=== PATIENT | male | born 1955 | race Caucasian/White ===

== ENCOUNTER → 2018-08-27 | Outpatient (CLI) | payer OTHER | LOC: HYPER 07:03 | DX: E11.621 Type 2 diabetes mellitus with foot ulcer (principal); L97.512 Non-pressure chronic ulcer of other part of right foot with fat layer exposed; E11.40 Type 2 diabetes mellitus with diabetic neuropathy, unspecified; I25.2 Old myocardial infarction; I10 Essential (primary) hypertension; E78.5 Hyperlipidemia, unspecified; E66.9 Obesity, unspecified; G89.29 Other chronic pain; M54.9 Dorsalgia, unspecified; M19.90 Unspecified osteoarthritis, unspecified site; K21.9 Gastro-esophageal reflux disease without esophagitis; E03.9 Hypothyroidism, unspecified; F41.9 Anxiety disorder, unspecified; F32.9 Major depressive disorder, single episode, unspecified; Z87.891 Personal history of nicotine dependence; Z68.35 Body mass index [BMI] 35.0-35.9, adult; Z98.61 Coronary angioplasty status; Z22.322 Carrier or suspected carrier of Methicillin resistant Staphylococcus aureus; Z79.82 Long term (current) use of aspirin; Z79.4 Long term (current) use of insulin; Z79.84 Long term (current) use of oral hypoglycemic drugs; Z79.01 Long term (current) use of anticoagulants ==

== ENCOUNTER → 2018-09-09 | Outpatient (CLI) | payer OTHER | LOC: HYPER 09-02 06:39 | DX: E11.621 Type 2 diabetes mellitus with foot ulcer (principal); L97.512 Non-pressure chronic ulcer of other part of right foot with fat layer exposed; L84 Corns and callosities; E11.40 Type 2 diabetes mellitus with diabetic neuropathy, unspecified; E78.5 Hyperlipidemia, unspecified; E03.9 Hypothyroidism, unspecified; I25.2 Old myocardial infarction; I10 Essential (primary) hypertension; K21.9 Gastro-esophageal reflux disease without esophagitis; M54.9 Dorsalgia, unspecified; M19.90 Unspecified osteoarthritis, unspecified site; F41.9 Anxiety disorder, unspecified; F32.9 Major depressive disorder, single episode, unspecified; Z98.61 Coronary angioplasty status; Z22.322 Carrier or suspected carrier of Methicillin resistant Staphylococcus aureus; Z87.891 Personal history of nicotine dependence; Z79.82 Long term (current) use of aspirin; Z79.4 Long term (current) use of insulin; Z79.84 Long term (current) use of oral hypoglycemic drugs; Z79.01 Long term (current) use of anticoagulants ==

== ENCOUNTER 2018-09-10 16:20 | Emergency (ER) | payer OTHER ==
[~2018-09-10] VITALS: Ht 180.3 cm; Wt 108.0 kg
[2018-09-10 16:54] LABS: BASOPHILS 1.4 % (0.0-2.0); EOSINOPHILS 5.4 % (0.0-3.0); HEMATOCRIT 37.1 % (42.0-52.0); HEMOGLOBIN 13.1 gm/dL (14.0-18.0); LYMPHOCYTES 36.4 % (24.0-44.0); MCHC 35.2 g/dL (28.0-37.0); MCV 90.9 fL (80.0-100.0); MONOCYTES 9.8 % (1.0-8.0); PLATELET COUNT 258 thou/uL (150-400); RBC 4.08 mil/uL (4.50-6.00); RDW 13.7 % (10.5-14.5); WBC 6.4 thou/uL (4.0-11.0)
[2018-09-10 17:10] LABS: CALCIUM 9.2 mg/dL (8.5-10.1); CREATININE 1.4 mg/dL (0.7-1.3); POTASSIUM 4.9 mmol/L (3.5-5.1)
[2018-09-10 17:14] LABS: ALBUMIN 3.5 g/dL (3.4-5.0); TOTAL BILIRUBIN 0.4 mg/dL (<0.1-1.0); TOTAL PROTEIN 8.5 g/dL (6.4-8.2)
[2018-09-10 19:18] VITALS: BP 145/88
--- NOTE | 2018-09-11 07:55 | EKG ---
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1955 Requested By: Marcin Rome Order Number: [id number] MD: Leeroy Boss Measurements Intervals [place] Rate: 79 P: 64 IA: 169 QRS: 53 QRSD: 93 T: 15 QT: 359 QTc: 412 Interpretive Statements Sinus rhythm Normal tracing No previous ECG available for comparison Electronically Signed On 09-11-2018 7:55:37 CDT by Leeroy Boss [email or web address] ��������������������������������������������� <ELECTRONICALLY SIGNED> ���������������������������������������� By: Leeroy Boss MD, [facility] ��������������������������������������������� 09/11/18 0755 1657 1657 Leeroy Boss MD, FACC /EPI
== END 2018-09-10 19:14 | disposition home or self-care (01) ==
LOC: ER 16:20
PROVIDERS: Colon & Rectal Surgery
DX: R79.9 Abnormal finding of blood chemistry, unspecified (principal); E11.9 Type 2 diabetes mellitus without complications; Z88.5 Allergy status to narcotic agent

== ENCOUNTER → 2018-09-23 | Outpatient (CLI) | payer OTHER | LOC: NUC 00:58 | DX: I25.10 Atherosclerotic heart disease of native coronary artery without angina pectoris (principal); R94.31 Abnormal electrocardiogram [ECG] [EKG]; I10 Essential (primary) hypertension; E78.5 Hyperlipidemia, unspecified; E11.9 Type 2 diabetes mellitus without complications; Z79.4 Long term (current) use of insulin; Z87.891 Personal history of nicotine dependence; Z79.899 Other long term (current) drug therapy; Z88.8 Allergy status to other drugs, medicaments and biological substances ==

== ENCOUNTER → 2018-09-30 | Outpatient (CLI) | payer OTHER | LOC: HYPER 06:28 | DX: E11.621 Type 2 diabetes mellitus with foot ulcer (principal); L97.512 Non-pressure chronic ulcer of other part of right foot with fat layer exposed; E11.40 Type 2 diabetes mellitus with diabetic neuropathy, unspecified; E11.21 Type 2 diabetes mellitus with diabetic nephropathy; I10 Essential (primary) hypertension; I25.2 Old myocardial infarction; E66.9 Obesity, unspecified; L84 Corns and callosities; E78.5 Hyperlipidemia, unspecified; G89.29 Other chronic pain; M54.9 Dorsalgia, unspecified; M19.90 Unspecified osteoarthritis, unspecified site; K21.9 Gastro-esophageal reflux disease without esophagitis; E03.9 Hypothyroidism, unspecified; F41.9 Anxiety disorder, unspecified; F32.9 Major depressive disorder, single episode, unspecified; Z68.35 Body mass index [BMI] 35.0-35.9, adult; Z98.61 Coronary angioplasty status; Z22.322 Carrier or suspected carrier of Methicillin resistant Staphylococcus aureus; Z87.891 Personal history of nicotine dependence; Z79.82 Long term (current) use of aspirin; Z79.84 Long term (current) use of oral hypoglycemic drugs; Z79.01 Long term (current) use of anticoagulants ==

== ENCOUNTER 2018-10-17 12:34 | Emergency (ER) | payer OTHER ==
[~2018-10-17] VITALS: Ht 177.8 cm; Wt 107.5 kg
[2018-10-17 13:17] LABS: ABSOLUTE NEUTROPHILS 3.2 thou/uL (1.4-8.2); BASOPHILS 0.3 % (0.0-2.0); EOSINOPHILS 3.7 % (0.0-3.0); HEMOGLOBIN 13.3 gm/dL (14.0-18.0); LYMPHOCYTES 34.3 % (24.0-44.0); MCH 31.7 pg (26.0-34.0); MCV 90.6 fL (80.0-100.0); MONOCYTES 8.8 % (1.0-8.0); PLATELET COUNT 250 thou/uL (150-400); POLYS 52.9 % (36.0-66.0); RDW 13.6 % (10.5-14.5)
[2018-10-17 13:24] LABS: URINE BILIRUBIN NEGATIVE (Negative); URINE BLOOD NEGATIVE (Negative); URINE CLARITY CLEAR; URINE COLOR YELLOW; URINE GLUCOSE-RANDOM* 2+ (Negative); URINE KETONES TRACE (Negative); URINE LEUKOCYTES-REFLEX NEGATIVE (Negative); URINE NITRITE-REFLEX NEGATIVE (Negative); URINE PROTEIN (DIPSTICK) 1+ (Negative); URINE SPECIFIC GRAVITY 1.025 (1.005-1.035); URINE UROBILINOGEN 0.2 E.U./dl (0.2-1.0)
[2018-10-17 13:25] LABS: CREATININE 1.2 mg/dL (0.7-1.3); POTASSIUM 4.8 mmol/L (3.5-5.1)
[2018-10-17 13:31] LABS: ALBUMIN 3.3 g/dL (3.4-5.0); TOTAL BILIRUBIN 0.6 mg/dL (<0.1-1.0); TOTAL PROTEIN 8.4 g/dL (6.4-8.2)
[2018-10-17 13:31] LABS: AMORPHOUS URATES Few /LPF (None Seen); BACTERIA-REFLEX None Seen /HPF (None Seen); CASTS None Seen /LPF (None Seen); MUCUS 4-6 Moderate strn/LPF (None Seen); SQUAMOUS None Seen /LPF (0-3); URINE RBC None Seen /HPF (0-2); URINE WBC-REFLEX None Seen /HPF (0-5)
[2018-10-17 14:56] VITALS: BP 126/80
== END 2018-10-17 14:57 | disposition home or self-care (01) ==
LOC: ER 12:34
PROVIDERS: Physician Assistant
DX: E83.42 Hypomagnesemia (principal); E87.1 Hypo-osmolality and hyponatremia; E11.9 Type 2 diabetes mellitus without complications; M06.9 Rheumatoid arthritis, unspecified; Z86.11 Personal history of tuberculosis; Z88.5 Allergy status to narcotic agent

== ENCOUNTER → 2018-11-20 | Outpatient (CLI) | payer OTHER | LOC: RAD 12:18 | DX: R06.02 Shortness of breath (principal); R06.00 Dyspnea, unspecified; Z88.8 Allergy status to other drugs, medicaments and biological substances ==

== ENCOUNTER → 2018-12-24 | Outpatient (CLI) | payer OTHER ==
[~2018-12-24] MED LIST: VIBRAMYCIN 100100 M2 PO
== END ==
LOC: HYPER 12:05
DX: E11.621 Type 2 diabetes mellitus with foot ulcer (principal); L97.512 Non-pressure chronic ulcer of other part of right foot with fat layer exposed; E11.40 Type 2 diabetes mellitus with diabetic neuropathy, unspecified; L84 Corns and callosities; E78.5 Hyperlipidemia, unspecified; M19.90 Unspecified osteoarthritis, unspecified site; I10 Essential (primary) hypertension; G89.29 Other chronic pain; M54.9 Dorsalgia, unspecified; K21.9 Gastro-esophageal reflux disease without esophagitis; E03.9 Hypothyroidism, unspecified; I25.2 Old myocardial infarction; E66.9 Obesity, unspecified; F32.9 Major depressive disorder, single episode, unspecified; F41.9 Anxiety disorder, unspecified; Z87.891 Personal history of nicotine dependence; Z68.34 Body mass index [BMI] 34.0-34.9, adult; Z22.322 Carrier or suspected carrier of Methicillin resistant Staphylococcus aureus; Z79.01 Long term (current) use of anticoagulants; Z79.4 Long term (current) use of insulin; Z79.82 Long term (current) use of aspirin; Z98.61 Coronary angioplasty status

== ENCOUNTER → 2019-01-02 | Outpatient (CLI) | payer OTHER ==
--- NOTE | 2019-01-15 17:36 | SLE ---
[facility] [place] [address] POLYSOMNOGRAPHY STUDY Name: MATILDA GUZMAN Room #: REG [facility].#: [id number] Admission: 01/02/19 Attend Phys: Quintin James MD Discharge: Date of : 51 Report #: [id number] THIS REPORT FOR: //name// CC: Quintin Max MD DATE OF SERVICE: 01/02/2019 SLEEP STUDY ATTENDING PHYSICIAN: Dr. Braden Max. The patient is a 63-year-old who weighs 230 pounds with a BMI of 33. The patient's [place] score was 13. The patient underwent split night study performed at [facility]. During the night study, the patient spent 477 minutes in bed and slept for 360 minutes with a sleep efficiency of 75%. Sleep latency was 49 minutes with a REM latency of 397 minutes. Sleep architecture showed increased stage 1 sleep, normal stage 2 sleep, absent slow wave and reduced REM sleep. During the initial diagnostic portion of the study, the patient slept for 213 minutes. During that time, the patient had no obstructive apneas. There was one mixed apnea, no central apneas and 39 hypopneas. The patient's apnea hypopnea index was 11.2 per hour. REM sleep was not seen during the diagnostic portion. Supine AHI was 15.5 per hour. EKG monitoring revealed an average heart rate of 98 beats per minute with episodes of sinus tachycardia with a maximum heart rate of 116 beats per minute. Frequent PVCs were seen, but no sustained arrhythmias observed. PLMS were seen at an index of 53 per hour and 15 per hour caused EEG arousals. The PLM index, however, improved to 9.8 per hour with an arousal index of 4.1 per hour while the patient slept on CPAP. Nocturnal oximetry study revealed an average oxygen saturation of 94% with a lowest of 86%. 1.8 minutes were spent with oxygen saturation of less than 89%. The patient met the criteria for CPAP initiation. It was started at 10 cm of water for patient's comfort and titrated up to 13 cm of water. At the final pressure, the patient slept for 71 minutes including 39 minutes of REM sleep. The patient had a small portion of supine REM sleep as well. The patient's AHI was reduced to 0 per hour and oxygen saturations remained above 95%. IMPRESSION: [facility] [address] [place] [address] POLYSOMNOGRAPHY STUDY Name: MATILDA GUZMAN Room #: REG [facility]#: [id number] Admission: 01/02/19 Attend Phys: Quintin James MD Discharge: Date of : 51 Report #: [id number] 1. Mild sleep apnea-hypopnea syndrome with moderate increase during supine sleep. Total AHI 11.2 per hour with supine AHI of 15.5 per hour. Absence of REM sleep during the diagnostic portion of the study can underestimate the severity of sleep apnea. 2. No clinically significant nocturnal hypoxia. 3. Severe periodic limb movements, which did significantly improve to only mild periodic limb movements while the patient slept on CPAP and as such, it does not need to be treated unless the patient has symptoms of restless legs during the day. 4. Abnormal EKG with frequent PVCs. f/u with cardiology if clinically indicated. RECOMMENDATIONS: 1. CPAP at 13 cm water completely eliminated the patient's sleep apnea and should be used on a nightly basis. 2. Follow up in 4-6 weeks to assess compliance with CPAP and to document clinical improvement. 3. Weight loss is strongly advised. 4. Avoid SPECIAL SERVICES AGENT depressants. 5. Cautioned regarding driving until symptoms of sleep apnea resolve with the use of CPAP. <ELECTRONICALLY SIGNED> By: Quintin James MD 01/15/19 1736 010 0114 Quintin James MD /nt
== END ==
LOC: SLEEPLAB 09:35
DX: G47.33 Obstructive sleep apnea (adult) (pediatric) (principal); G47.30 Sleep apnea, unspecified

== ENCOUNTER 2019-01-09 13:08 | Emergency (ER) | payer OTHER ==
[~2019-01-09] VITALS: Ht 180.3 cm; Wt 104.3 kg
[2019-01-09 15:45] LABS: BASOPHILS 0.3 % (0.0-2.0); EOSINOPHILS 4.9 % (0.0-3.0); HEMATOCRIT 38.8 % (42.0-52.0); HEMOGLOBIN 13.3 gm/dL (14.0-18.0); MCH 30.8 pg (26.0-34.0); MCHC 34.1 g/dL (28.0-37.0); MCV 90.2 fL (80.0-100.0); MONOCYTES 8.5 % (1.0-8.0); PLATELET COUNT 325 thou/uL (150-400); POLYS 58.3 % (36.0-66.0); RBC 4.31 mil/uL (4.50-6.00); RDW 14.6 % (10.5-14.5); WBC 8.5 thou/uL (4.0-11.0)
[2019-01-09 15:53] LABS: CALCIUM 9.3 mg/dL (8.5-10.1); CREATININE 1.3 mg/dL (0.7-1.3); POTASSIUM 5.6 mmol/L (3.5-5.1)
[2019-01-09 15:59] LABS: ALBUMIN 3.2 g/dL (3.4-5.0); TOTAL BILIRUBIN 0.4 mg/dL (<0.1-1.0); TOTAL PROTEIN 8.4 g/dL (6.4-8.2)
[2019-01-09] MEDS ORDERED: VIBRAMYCIN 100100 M2 PO (17:02)
[2019-01-09 17:30] VITALS: BP 108/64
--- NOTE | 2019-01-09 17:50 | EKG ---
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
== END 2019-01-09 17:30 | disposition home or self-care (01) ==
LOC: ER 13:08
PROVIDERS: Physician Assistant
DX: S91.101A Unspecified open wound of right great toe without damage to nail, initial encounter (principal); E11.40 Type 2 diabetes mellitus with diabetic neuropathy, unspecified; Z88.5 Allergy status to narcotic agent; X58.XXXA Exposure to other specified factors, initial encounter; Y92.89 Other specified places as the place of occurrence of the external cause; Y93.89 Activity, other specified; Y99.8 Other external cause status

== ENCOUNTER → 2019-01-21 | Outpatient (CLI) | payer OTHER | LOC: HYPER 08:56 | DX: E11.621 Type 2 diabetes mellitus with foot ulcer (principal); L97.512 Non-pressure chronic ulcer of other part of right foot with fat layer exposed; E11.40 Type 2 diabetes mellitus with diabetic neuropathy, unspecified; I25.2 Old myocardial infarction; I10 Essential (primary) hypertension; L84 Corns and callosities; E78.5 Hyperlipidemia, unspecified; M54.9 Dorsalgia, unspecified; E66.9 Obesity, unspecified; M19.90 Unspecified osteoarthritis, unspecified site; K21.9 Gastro-esophageal reflux disease without esophagitis; E03.9 Hypothyroidism, unspecified; G89.29 Other chronic pain; F41.9 Anxiety disorder, unspecified; F32.9 Major depressive disorder, single episode, unspecified; Z68.35 Body mass index [BMI] 35.0-35.9, adult; Z98.61 Coronary angioplasty status; Z22.322 Carrier or suspected carrier of Methicillin resistant Staphylococcus aureus; Z87.891 Personal history of nicotine dependence; Z79.82 Long term (current) use of aspirin; Z79.4 Long term (current) use of insulin; Z79.84 Long term (current) use of oral hypoglycemic drugs; Z79.01 Long term (current) use of anticoagulants; Z68.34 Body mass index [BMI] 34.0-34.9, adult ==

== ENCOUNTER → 2019-02-27 | Outpatient (CLI) | payer OTHER ==
[~2019-02-27] VITALS: Ht 180.3 cm; Wt 106.6 kg
[~2019-02-27] MED LIST changes: +BISOPROLOL FUMAR5 MG PO; +BUSPIRONE HCL10 MG PO; +DULOXETINE HCL60 MG PO; +GABAPENTIN600 M1 PO; +LEVO-T50 MCG PO; +LISINOPRIL2.5 MG PO; +MAGNESIUM400 MG PO; +METFORMIN HCL500 MG PO; +MULTIVITAMINS PO; +NIACIN 500 MG500 M1 PO; +NOVOLIN N100 UNIT/1 SUBQ; +NOVOLIN R100 UNIT/1 SUBQ; +PLAVIX 75 MG TA75 MG PO; +ST. JOSEPH ASPI81 MG PO; +VITAMIN C500 M2 PO; +VITAMIN E1000 UNIT PO; +ZANTAC 150MG T150 MG PO
--- NOTE | 2019-02-28 12:40 | P ---
[facility] [address] PROCEDURE REPORT Name: MAITLDA GUZMAN Room #: REG [facility] [id number] Admission: 02/27/19 Attend Phys: Toby Hart MD Discharge: Date of : 51 Report #: [id number] THIS REPORT FOR: //name// CC: Simba Michael DATE OF SERVICE: 02/27/2019 OUTPATIENT COLONOSCOPY REPORT BRIEF HISTORY: The patient is a 63-year-old male for average risk screening colonoscopy. PREOPERATIVE DIAGNOSIS: Average risk screening colonoscopy. POSTOPERATIVE DIAGNOSES: 1. Colon polyps x 2. 2. Small internal hemorrhoids. MEDICATIONS: Deep sedation with propofol per anesthesia. SPECIMENS: 1. Polyp, mid transverse colon. 2. Polyp, distal transverse colon. ESTIMATED BLOOD LOSS: 3 mL. PROCEDURE: Colonoscopy to cecum and terminal ileum with snare polypectomy and biopsy. FINDINGS: Prior to propofol sedation, procedure of colonoscopy discussed with the patient as well as potential risks and its complications. He indicates he understands and desires to proceed. DESCRIPTION OF PROCEDURE: With the patient in left lateral decubitus position, digital examination was completed, which revealed no abnormalities. Subsequently, the Olympus video colonoscope was introduced in the rectum, advanced under direct vision to the cecum. This was done with minimal difficulty. The cecum was identified by the ileocecal valve and the appendiceal orifice. I was able to visualize the distal segment of the terminal ileum, which was inspected and noted to be unremarkable. At that point, the scope was slowly withdrawn and careful circumferential views were obtained. Upon slow withdrawal of the scope, the prep was good. The mucosa is within normal limits, normal vascular pattern, and normal light reflex. No abnormalities were noted until the mid transverse colon was reached, at which point a diminutive polyp [facility] [address] [place] [address] PROCEDURE REPORT Name: MATILDA GUZMAN Room #: REG JUSTIN Loco#: [id number] Admission: 02/27/19 Attend Phys: Toby Hart MD Discharge: Date of : 51 Report #: [id number] was seen and removed by biopsy. Scope was further withdrawn and in the distal transverse colon, a 5 x 6 mm sessile polyp was seen and removed by cold snare polypectomy. The scope was further withdrawn and no additional neoplastic lesions were seen. No other mucosal abnormalities were seen. No additional abnormalities were seen until the rectum was reached and upon retroflexion, small hemorrhoids were seen. Scope was withdrawn. The patient tolerated the procedure well. CONDITION OF THE PATIENT UPON DISCHARGE: Following procedure, the patient drowsy, aroused, conversant and will be discharged home when fully ambulatory. INSTRUCTIONS TO THE PATIENT AND FAMILY AT THE TIME OF DISCHARGE: We will follow up on the path of the polyps. If one or both are adenomas, he should return in 5 years; if neither adenomas, then 10 years would be indicated. Last colonoscopy was in 2004. Withdrawal time from the cecum was 15 minutes 53 seconds. <ELECTRONICALLY SIGNED> By: Toby Hart MD 02/28/19 1240 1017 1047 Toby Hart MD /nt
--- NOTE | 2019-03-03 11:07 | PATH ---
[facility] [address] [address] PATHOLOGY RPT PROCEDURE Name: TARIK SINGER Room #: REG JUSTIN Tenorio.#: [id number] Admission: 02/27/19 Date of : 51 Discharge: Report #: [id number] Path Case #: [id number] [facility] Accession Number: [id number] . 01 Material submitted: . PART A: colon - POLYP AT MID-TRANSVERSE COLON. Modifiers: mid, transverse PART B: colon - POLYP AT DISTAL TRANSVERSE COLON. Modifiers: distal, transverse . 01 Clinical history: . avg risk screening . 02 Diagnosis: A. Polyp, at mid transverse colon, endoscopic biopsy: - Tubular adenoma. - Negative for high grade dysplasia. . B. Polyp, at distal transverse colon, endoscopic biopsy: - Tubular adenoma. - Negative for high grade dysplasia. . (IUV:mml; 02/28/2019) QLM 02/28/2019 1552 Local . 02 Electronically signed: . Surekha Lopez MD, Pathologist NPI- [id number] . 01 Gross description: . A. The specimen is received in formalin, labeled "Tarik Singer, polyp at mid transverse colon" and consists of multiple fragments of pink-briones tissue measuring 0.9 x 0.5 x 0.2 cm in aggregate which are entirely submitted in A1. . B. The specimen is received in formalin, labeled "Tiprina, Tarik, polyp at distal transverse colon" and consists of 2 fragments of pink-briones tissue measuring 0.3 x 0.3 cm each which are entirely submitted in B1. (SDY; 02/27/2019) SYU/SYU 02/27/2019 1557 Local . 02 Pathologist provided ICD-10: D12.3 . 02 CPT . 249953, [id number] Specimen Comment: A courtesy copy of this report has been sent to [phone], [phone] [address] PATHOLOGY RPT PROCEDURE Name: TARIK SINGER Room #: REG [facility].#: [id number] Admission: 02/27/19 Date of : 51 Discharge: Report #: [id number] Path Case #: [id number] Specimen Comment: [phone] Specimen Comment: Report sent to and Performed at: [address], [place], [place] [id number] MD Christ Gutierrez MD Phone: [phone] Performed at: [address] [id number] MD Surekha Lopez MD Phone: [phone]
== END | disposition home or self-care (01) ==
LOC: GI 07:55
DX: Z12.11 Encounter for screening for malignant neoplasm of colon (principal); D12.3 Benign neoplasm of transverse colon; K64.8 Other hemorrhoids; I10 Essential (primary) hypertension; I25.2 Old myocardial infarction; E11.40 Type 2 diabetes mellitus with diabetic neuropathy, unspecified; G47.30 Sleep apnea, unspecified; Z79.899 Other long term (current) drug therapy; Z98.890 Other specified postprocedural states; Z79.4 Long term (current) use of insulin; Z96.651 Presence of right artificial knee joint; Z87.891 Personal history of nicotine dependence; Z98.41 Cataract extraction status, right eye; Z79.82 Long term (current) use of aspirin; Z88.8 Allergy status to other drugs, medicaments and biological substances
CPT/HCPCS: 62110; 62900

== ENCOUNTER 2019-09-12 09:53 | Emergency (ER) | payer OTHER ==
[~2019-09-12] VITALS: Ht 177.8 cm; Wt 99.8 kg
[2019-09-12 09:59] VITALS: BP 185/99
== END 2019-09-12 12:09 ==
LOC: ER 09:53
DX: Z53.21 Procedure and treatment not carried out due to patient leaving prior to being seen by health care provider (principal)

== ENCOUNTER → 2019-11-24 | Outpatient (CLI) | payer OTHER | LOC: HYPER 14:12 | PROVIDERS: ATTEND Emergency Medicine | DX: E11.621 Type 2 diabetes mellitus with foot ulcer (principal); L97.522 Non-pressure chronic ulcer of other part of left foot with fat layer exposed; E11.40 Type 2 diabetes mellitus with diabetic neuropathy, unspecified; I25.2 Old myocardial infarction; E78.5 Hyperlipidemia, unspecified; M19.90 Unspecified osteoarthritis, unspecified site; K21.9 Gastro-esophageal reflux disease without esophagitis; E03.9 Hypothyroidism, unspecified; G89.29 Other chronic pain; M54.9 Dorsalgia, unspecified; I10 Essential (primary) hypertension; F41.9 Anxiety disorder, unspecified; F32.9 Major depressive disorder, single episode, unspecified; Z87.891 Personal history of nicotine dependence; Z86.14 Personal history of Methicillin resistant Staphylococcus aureus infection; Z79.4 Long term (current) use of insulin; Z79.01 Long term (current) use of anticoagulants; Z98.52 Vasectomy status; Z98.49 Cataract extraction status, unspecified eye ==

== ENCOUNTER → 2019-12-24 | Outpatient (CLI) | payer OTHER | LOC: HYPER 10:24 | PROVIDERS: ATTEND Emergency Medicine | DX: E11.621 Type 2 diabetes mellitus with foot ulcer (principal); L97.522 Non-pressure chronic ulcer of other part of left foot with fat layer exposed; E11.40 Type 2 diabetes mellitus with diabetic neuropathy, unspecified; E66.01 Morbid (severe) obesity due to excess calories; E03.9 Hypothyroidism, unspecified; E78.5 Hyperlipidemia, unspecified; G89.29 Other chronic pain; I25.2 Old myocardial infarction; I10 Essential (primary) hypertension; M19.90 Unspecified osteoarthritis, unspecified site; K21.9 Gastro-esophageal reflux disease without esophagitis; F41.9 Anxiety disorder, unspecified; F32.9 Major depressive disorder, single episode, unspecified; Z79.4 Long term (current) use of insulin; Z79.01 Long term (current) use of anticoagulants; Z87.891 Personal history of nicotine dependence; Z68.33 Body mass index [BMI] 33.0-33.9, adult ==

== ENCOUNTER → 2020-04-12 | Outpatient (CLI) | payer OTHER | LOC: NUC 08:09 | PROVIDERS: ATTEND Internal Medicine | DX: Z01.818 Encounter for other preprocedural examination (principal); I10 Essential (primary) hypertension; E11.9 Type 2 diabetes mellitus without complications; E78.00 Pure hypercholesterolemia, unspecified; Z79.4 Long term (current) use of insulin; Z79.899 Other long term (current) drug therapy ==

== ENCOUNTER → 2020-11-11 | Outpatient (CLI) | payer OTHER | LOC: HYPER 09:12 | PROVIDERS: ATTEND Emergency Medicine | DX: S90.411A Abrasion, right great toe, initial encounter (principal); S90.414A Abrasion, right lesser toe(s), initial encounter; E11.21 Type 2 diabetes mellitus with diabetic nephropathy; E66.01 Morbid (severe) obesity due to excess calories; E03.9 Hypothyroidism, unspecified; E78.5 Hyperlipidemia, unspecified; G89.29 Other chronic pain; I10 Essential (primary) hypertension; I25.2 Old myocardial infarction; K21.9 Gastro-esophageal reflux disease without esophagitis; M19.90 Unspecified osteoarthritis, unspecified site; F41.9 Anxiety disorder, unspecified; F32.9 Major depressive disorder, single episode, unspecified; Z79.82 Long term (current) use of aspirin; Z87.891 Personal history of nicotine dependence; Z98.49 Cataract extraction status, unspecified eye; Z95.828 Presence of other vascular implants and grafts; Z79.4 Long term (current) use of insulin; Z68.34 Body mass index [BMI] 34.0-34.9, adult; X58.XXXA Exposure to other specified factors, initial encounter; Y93.89 Activity, other specified; Y92.89 Other specified places as the place of occurrence of the external cause; Y99.8 Other external cause status ==

== ENCOUNTER → 2020-12-27 | Outpatient (CLI) | payer OTHER ==
[~2020-12-27] MED LIST changes: +LIPITOR80 MG PO
[2020-12-27 11:27] LABS: HEMATOCRIT 39.5 % (42.0-52.0); HEMOGLOBIN 13.5 gm/dL (14.0-18.0); MCH 31.1 pg (26.0-34.0); MCHC 34.3 g/dL (28.0-37.0); MCV 90.8 fL (80.0-100.0); RBC 4.35 mil/uL (4.50-6.00); RDW 13.6 % (10.5-14.5); WBC 7.2 thou/uL (4.0-11.0)
[2020-12-27 11:29] LABS: URINE BILIRUBIN NEGATIVE (Negative); URINE BLOOD NEGATIVE (Negative); URINE CLARITY CLEAR; URINE COLOR YELLOW; URINE GLUCOSE-RANDOM* NEGATIVE (Negative); URINE KETONES NEGATIVE (Negative); URINE LEUKOCYTES-REFLEX NEGATIVE (Negative); URINE NITRITE-REFLEX NEGATIVE (Negative); URINE PROTEIN (DIPSTICK) TRACE (Negative); URINE SPECIFIC GRAVITY 1.025 (1.005-1.035); URINE UROBILINOGEN 0.2 E.U./dl (0.2-1.0)
[2020-12-27 11:31] LABS: INR 1.03; PROTIME 11.2 Seconds (10.5-12.1)
[2020-12-27 11:33] LABS: ALBUMIN 3.6 g/dL (3.4-5.0); CALCIUM 9.1 mg/dL (8.5-10.1); CREATININE 1.2 mg/dL (0.7-1.3); POTASSIUM 4.6 mmol/L (3.5-5.1)
--- NOTE | 2020-12-27 15:37 | EKG ---
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
== END ==
LOC: PAC 09:25 → LAB 16:19
PROVIDERS: ATTEND Orthopaedic Surgery
DX: T84.032D Mechanical loosening of internal right knee prosthetic joint, subsequent encounter (principal); E11.9 Type 2 diabetes mellitus without complications; I10 Essential (primary) hypertension; X58.XXXD Exposure to other specified factors, subsequent encounter

== ENCOUNTER → 2021-01-05 | Day surgery (SDC) | payer OTHER ==
[~2021-01-05] VITALS: Ht 177.8 cm; Wt 113.4 kg
== END | disposition home or self-care (01) ==
LOC: EDSTATUS 09:23 → TBA 11:04 → OR 11:04 → ADMC 16:15
PROVIDERS: ATTEND Orthopaedic Surgery
DX: M17.11 Unilateral primary osteoarthritis, right knee (principal); Z53.8 Procedure and treatment not carried out for other reasons; Z20.822 Contact with and (suspected) exposure to COVID-19; I10 Essential (primary) hypertension; E11.9 Type 2 diabetes mellitus without complications; I25.2 Old myocardial infarction; G47.30 Sleep apnea, unspecified; Z98.890 Other specified postprocedural states; Z79.899 Other long term (current) drug therapy; Z96.651 Presence of right artificial knee joint; Z98.52 Vasectomy status; Z87.891 Personal history of nicotine dependence

== ENCOUNTER → 2021-01-20 | Outpatient (CLI) | payer OTHER | LOC: SJCVCIMAG 12:21 | PROVIDERS: ATTEND Podiatrist Foot & Ankle Surgery | DX: I70.202 Unspecified atherosclerosis of native arteries of extremities, left leg (principal); E78.00 Pure hypercholesterolemia, unspecified; E11.9 Type 2 diabetes mellitus without complications; Z79.4 Long term (current) use of insulin; Z79.82 Long term (current) use of aspirin; Z79.899 Other long term (current) drug therapy; Z88.5 Allergy status to narcotic agent ==

== ENCOUNTER → 2021-02-11 | Outpatient (CLI) | payer OTHER ==
[2021-02-11 09:34] LABS: URINE BILIRUBIN NEGATIVE (Negative); URINE BLOOD NEGATIVE (Negative); URINE CLARITY CLEAR; URINE COLOR YELLOW; URINE GLUCOSE-RANDOM* 2+ (Negative); URINE KETONES NEGATIVE (Negative); URINE LEUKOCYTES-REFLEX NEGATIVE (Negative); URINE NITRITE-REFLEX NEGATIVE (Negative); URINE PROTEIN (DIPSTICK) NEGATIVE (Negative); URINE SPECIFIC GRAVITY 1.025 (1.005-1.035); URINE UROBILINOGEN 0.2 E.U./dl (0.2-1.0)
[2021-02-11 10:06] LABS: HEMATOCRIT 38.4 % (42.0-52.0); HEMOGLOBIN 13.1 gm/dL (14.0-18.0); MCH 31.2 pg (26.0-34.0); MCHC 34.2 g/dL (28.0-37.0); MCV 91.2 fL (80.0-100.0); RBC 4.21 mil/uL (4.50-6.00); RDW 13.6 % (10.5-14.5); WBC 6.3 thou/uL (4.0-11.0)
[2021-02-11 10:10] LABS: INR 0.99; PROTIME 10.8 Seconds (10.5-12.1)
[2021-02-11 10:14] LABS: ALBUMIN 3.6 g/dL (3.4-5.0); CALCIUM 8.7 mg/dL (8.5-10.1); CREATININE 1.5 mg/dL (0.7-1.3); POTASSIUM 4.8 mmol/L (3.5-5.1)
[2021-02-12 05:07] LABS: GLYCOHEMOGLOBIN (HGB A1C) 8.5 % (4.8-5.6)
== END ==
LOC: PAC 08:35
PROVIDERS: ATTEND Orthopaedic Surgery
DX: T84.032D Mechanical loosening of internal right knee prosthetic joint, subsequent encounter (principal); X58.XXXD Exposure to other specified factors, subsequent encounter

== ENCOUNTER 2021-02-17 06:24 | Inpatient (IN) | payer OTHER ==
[~2021-02-17] VITALS: Ht 177.8 cm; Wt 113.4 kg
[2021-02-17 07:33] VITALS: BP 120/61
[2021-02-17 15:44] VITALS: BP 137/53
[2021-02-17 16:50] VITALS: BP 131/62
[2021-02-17 20:16] VITALS: BP 119/71
--- NOTE | 2021-02-18 03:56 | NUR ---
RECEIVED CARE OF THIS PATIENT AT 1900. PATIENT ALERT AND ORIENTED X4. REMAINS IN BED BUT DOES MOVE R LEG WITH PURPOSE. IV PATENT IN LW WITH FLUIDS INFUSING. ACCUCHECK WAS 391, 65 UNITS NPH INSULIN GIVEN. HAS BEAR DRESSING ON R KNEE WITH TEDS, SCD'S AND POLAR ICE. DENIES PAIN. SLEPT OFF AND ON DURING NIGHT.
[2021-02-18 04:52] LABS: CALCIUM 7.9 mg/dL (8.5-10.1); MAGNESIUM 1.7 mg/dL (1.8-2.4); POTASSIUM 5.7 mmol/L (3.5-5.1)
[2021-02-18 05:28] LABS: ABSOLUTE NEUTROPHILS 10.1 thou/uL (1.4-8.2); BASOPHILS 0.3 % (0.0-2.0); HEMATOCRIT 32.1 % (42.0-52.0); HEMOGLOBIN 10.8 gm/dL (14.0-18.0); LYMPHOCYTES 9.2 % (24.0-44.0); MCH 30.9 pg (26.0-34.0); MCHC 33.8 g/dL (28.0-37.0); MCV 91.4 fL (80.0-100.0); MONOCYTES 9.9 % (1.0-8.0); PLATELET COUNT 193 thou/uL (150-400); POLYS 80.6 % (36.0-66.0); RBC 3.51 mil/uL (4.50-6.00); RDW 13.7 % (10.5-14.5); WBC 12.6 thou/uL (4.0-11.0)
[2021-02-18 07:35] VITALS: BP 119/60
--- NOTE | 2021-02-18 08:47 | NUR ---
Chart review. DX Right knee revision. 65 year old male, a & o x 3, and able to make his needs know. Intro to cm and dcp. He lives in duplex, 1 step to enter his home. No stairs inside. Independent. Manage his own medication. Has borrowed a jr walker. He will need fww and think that he got one few years ago but gave his walker away. He knows he will have to pay for one if medicare does not pay for one. Ok to send referral to provider plus to check benefits for fww. Per provider plus medicare will cover 80% and he will owe $16.00 for the walker. Drives and his brother d[place] or son will drive him places and outpt therapy in [place] till he is able to drive again. DC home with fww and outpt therapy.
[2021-02-18 09:35] VITALS: BP 119/60
--- NOTE | 2021-02-18 10:08 | NUR ---
Assumed care of pt at 0700. Pt a&ox4. Pain controlled with prn pain medications. Dressing c/d/i. CHELI hose and SCDs in place. IV antibiotics infusing. Pt worked with physical therapy. Will also have an afternoon session. Call light within reach. Fall precautions in place. Will continue to monitor.
[2021-02-18 15:04] LABS: FOLIC ACID 5.8 ng/mL (8.6-58.9)
--- NOTE | 2021-02-18 16:06 | PATH ---
[facility] [place] [address] PATHOLOGY RPT PROCEDURE Name: MATILDA GUZMAN Room #: 434-P [facility] M.R.#: [id number] Admission: 02/17/21 Date of : 51 Discharge: Report #: [id number] Path Case #: [id number] [facility] Accession Number: [id number] . 01 Material submitted: . knee - RIGHT KNEE SYNOVIUM-FS. Modifiers: right . 01 Clinical history: . MECHANICAL LOOSENING OF INTERNAL PROSTHETIC JOINT TOTAL KNEE REVISION (+++) 3.0X3.5X1.0CM FLESHY LUNDBERG FRAGMENTS SYNOVIAL TISSUE WITH 0-1 NEUTROPHIL . 02 Frozen section diagnosis: . FROZEN SECTION DIAGNOSIS: (Lizeth James MD) . Right knee synovium: - Synovial tissue with 0-1 neutrophils. . The report is conveyed to Dr. Malone by Dr. James on 02/17/2021 at 9:45 a.m. and a written report is placed in the patient's chart. . . FROZEN SECTION GROSS DESCRIPTION: The specimen is received from the OR fresh as right knee synovium and consists of multiple fleshy lundberg fragments which measure 3.5 x 3.5 x 1.0 cm. A personal service representative portion is submitted for frozen section diagnosis in FSA1 and subsequently in block A1 in formalin. (ANK:kenya; 02/17/2021) . . Frozen section performed at [facility], [address] [place], [place] [address]sh[address]ley [place], [place] [address]. NNK/QMS . 02 Diagnosis: Right knee synovium, excision: - Synovial tissue with mild synovial hyperplasia . - Negative for active inflammation or malignancy. (ANK:cory; 02/18/2021) MBR 02/18/2021 1512 Local . 02 Electronically signed: . Lizeth James MD, Pathologist NPI- [id number] . [address] [place] [address] PATHOLOGY RPT PROCEDURE Name: MATILDA GUZMAN Room #: 434-P REG [facility] M.R.#: [id number] Admission: 02/17/21 Date of : 51 Discharge: Report #: [id number] Path Case #: [id number] Gross description: . PLEASE SEE GROSS DESCRIPTION UNDER FROZEN SECTION HEADING. /QMS 02/17/2021 1229 Local . 02 Pathologist provided ICD-10: M67.861 . 02 CPT . 294606, [id number] Specimen Comment: A courtesy copy of this report has been sent to [phone] Specimen Comment: [phone] Specimen Comment: Report sent to / DR AGARWAL Performed at: [address], [place] [id number] MD James Case MD Phone: [phone] Performed at: [address] [id number] MD Surekha Lopez MD Phone: [phone]
[2021-02-18 21:04] VITALS: BP 110/60
[2021-02-18 21:07] VITALS: BP 125/54
[2021-02-18 21:13] VITALS: BP 110/60
--- NOTE | 2021-02-19 03:17 | NUR ---
UPON SHIFT REPORT, PT WITHOUT ANY REPORTS OF CONCERN OR NEED. UPON SHIFT ASSESSMENT, PT AOX4. PT DENIES PAIN AND SOB WHILE ON ROOM AIR. PT TOLERATING PO INTAKE OF FLUIDS AND CARB CONTROLLED DIET WITHOUT ISSUE. PT WITHOUT NAUSEA OR EMESIS. PT VOIDING PER URINAL AT BEDSIDE, DARK YELLOW URINE NOTED. PT RESTING IN BED THROUGHOUT SHIFT, FREQUENT REPOSITIONING ENCOURAGED, PT NOTED TO SHIFT SLIGHTLY ON HIS OWN WITHOUT ISSUE, REFUSING REPOSITIONING ASSISTANCE. PT REPORTING CHRONIC NUMBNESS AND TINGLING TO BOTH FEET AND HANDS. CAPILLARY REFILL LESS THAN 3SEC AND PERIPHERAL PULSES PALPABLE IN ALL EXTREMITIES. PT ENCOURAGED TO NOTIFY STAFF FOR ALL NEEDS, CALL LIGHT WITHIN REACH, BED ALARM ON, BED LOCKED IN LOWEST POSITION, FREQUENT MONITORING WILL CONTINUE.
[2021-02-19 08:13] VITALS: BP 149/64
--- NOTE | 2021-02-19 09:30 | NUR ---
Assumed care of pt at 0700. Pt a&ox4. Pt c/o back and knee pain. Prn pain medications administered. Dressing c/d/i. IV antibiotics infusing. Pt wallked with physical therapy this am. Possible d/c to home today.
[2021-02-19 10:57] LABS: CALCIUM 8.3 mg/dL (8.5-10.1); CREATININE 1.7 mg/dL (0.7-1.3); POTASSIUM 4.5 mmol/L (3.5-5.1)
[2021-02-19 16:06] VITALS: BP 122/57
[2021-02-19 19:46] VITALS: BP 131/72
--- NOTE | 2021-02-20 03:33 | NUR ---
PT LYING IN BED. VOIDING PER URINAL. PERCOCET PROVIDING PAIN RELIEF. RESTING COMFORTABLY. NO NEEDS VOICED. CALL LIGHT WITHIN REACH. FREQUENT OBSERVATION.
[2021-02-20 06:27] LABS: CALCIUM 8.2 mg/dL (8.5-10.1); CREATININE 1.5 mg/dL (0.7-1.3); POTASSIUM 5.1 mmol/L (3.5-5.1)
[2021-02-20 07:10] VITALS: BP 157/75
--- NOTE | 2021-02-20 11:04 | NUR ---
ASSUMED CARE OF PT AT 0700 THIS MORNING. PT IS A/OX4 WITH CONFUSION AND FORGETFULNESS. ASSESSMENTS NOTED IN CHART AND OTHERWISE UNREMARKABLE. PT STATED HE WAS NOT IN MUCH PAIN AND WOULD NOT GIVE ME A NUMBER ON THE PAIN SCALE. PT PULLED OUT IV WHILE I WAS SETTING UP HIS ANTIBIOTIC AND KEPT DRAWING BACK ON A NEW IV PLACEMENT. I WAS UNABLE TO GET ONE ESTABLISHED AT THAT TIME. FALL PRECAUTIONS ARE IN PLACE. POLAR PK, TEDS AND SCDS ARE IN IN PLACE. CALL LIGHT AND OTHER NEEDS ARE IN REACH. MEDS AND TX GIVEN NEEDED AND SCHEDULED. WILL MONITOR AND NOTE ANY CHANGES.
[2021-02-20 15:59] VITALS: BP 167/79
[2021-02-20 18:56] VITALS: BP 138/70
--- NOTE | 2021-02-21 02:33 | NUR ---
PT LYING IN BED. CONDOM CATHETER PLACED. PERCOCET PROVIDING PAIN RELIEF. RESTING COMFORTABLY. NO NEEDS VOICED. CALL LIGHT WITHIN REACH. FREQUENT OBSERVATION.
[2021-02-21 07:05] VITALS: BP 143/74
--- NOTE | 2021-02-21 08:03 | NUR ---
RE-ASSUMED CARE OF PT AT 0700 THIS MORNING. NO CHANGES IN PT CONDITION SINCE REPORT LAST NIGHT. PT IS A/OX4 WITH CONFUSION. NO PAIN AT THIS TIME. WILL BE GIVING PAIN MED BEFORE PHYS THPY. ASSESSMENT NOTED IN CHART. FALL PRECAUTIONS ARE IN PLACE. CALL LIGHT AND OTHER NEEDS ARE IN REACH. MEDS AND TX GIVEN NEEDED AND SCHEDULED. WILL MONITOR AND NOTE ANY CHANGES.
--- NOTE | 2021-02-21 08:14 | O ---
[facility] [place] [place] [address] OPERATIVE REPORT Name: MATILDA GUZMAN Room #: 434-P ADM IN M.R.#: [id number] Admission: 02/17/21 Attend Phys: Lakhwinder Malone MD Discharge: Date of : 51 Report #: [id number] THIS REPORT FOR: cc: Simba Castro David J. DO Abraham,Lakhwinder Salazar MD ~ DATE OF SERVICE: 02/17/2021 PREOPERATIVE DIAGNOSIS: Aseptic loosening, right total knee arthroplasty. POSTOPERATIVE DIAGNOSIS: Aseptic loosening, right total knee arthroplasty. PROCEDURE: Revision right total knee arthroplasty, all components. SURGEON: Lakhwinder Malone MD SAFETY SECURITY OFFICER: Neha Bergeron PA-C. INDICATION FOR SAFETY SECURITY OFFICER: Throughout the case, extensive retraction, manipulation of the knee was required. This was afforded to me by my carpenter's assistant. ANESTHESIA: LMA with adductor canal block. IMPLANTS: A [employer] size 5 Legion revision Oxinium femur with a 2 mm offset catering truck driver and a 15 x 160 intramedullary stem, a size 4 tibia baseplate with a 4 mm offset catering truck driver and a size 14 x 160 intramedullary stem, a size 11 constrained polyethylene and a size 35 patella. TOURNIQUET TIME: 100 minutes. ESTIMATED BLOOD LOSS: 25 mL COMPLICATIONS: None. SPECIMENS: Intraoperative cultures were sent as well as intraoperative frozen section was performed, showing no neutrophils per high power field. CONDITION UPON LEAVING THE OR: Stable. INDICATIONS FOR PROCEDURE: The patient is a 65-year-old gentleman, who is about 2 years out from a right total knee arthroplasty. He has had continuous pain since his surgery and had gone on to have significant stiffness and daily pain ___. X-rays demonstrated lucency under the tibial component. Workup for infection was negative. Bone scan revealed increased uptake around his right total knee arthroplasty. It was felt that he had aseptic loosening of a total knee arthroplasty and after discussion with him, he elected for revision of his [address] [address] OPERATIVE REPORT Name: MATILDA GUZMAN Room #: 434-P [facility] IN ..#: [id number] Admission: 02/17/21 Attend Phys: Lakhwinder Malone MD Discharge: Date of : 51 Report #: [id number] right total knee arthroplasty. DESCRIPTION OF PROCEDURE: Risks, benefits, alternatives, complications were discussed in detail with the patient including but not limited to risk of anesthesia, risk of damage to nerves, arteries, blood vessels, risk for infection, bleeding, risk for continued knee pain and need for reoperation. Informed consent was obtained from the patient. Right knee was appropriately marked in the preoperative holding area. IV Ancef was given for preoperative antibiotics. He was brought to the operating room and placed in supine position on the operating table. LMA anesthesia was induced without complication. Tourniquet was placed on the right thigh. Right lower extremity was prepped and draped in normal sterile fashion. Timeout was performed properly identifying the patient ___ the instrumentation and implants. All in the operating room in agreement. Right lower extremity was exsanguinated and tourniquet inflated. Tourniquet time was 100 minutes. The previous scar was used and this was opened with a 10 blade through the skin. Dissection was taken down sharply to the fascia and deep flaps were developed medially and laterally. Fresh 10 blade was used to make a medial parapatellar arthrotomy and cultures of the fluid were taken and sent x2. Multiple synovial tissue specimens were then taken and sent for intraoperative frozen section, which revealed no neutrophils per high power field. The medial and lateral gutters were reestablished. The polyethylene liner was removed and the femoral component was removed with rigid curved osteotome and this came out fairly easily with no bone ingrowth into the femoral component. Attention was turned to the tibia. An osteotome was placed underneath the tibial component and this was removed very easily with no bone remaining with the tibial component. All the ___ no cement on the tibial component. This was obviously loose. The cement was ___ tibia with osteotome and soft tissue and scar was then cleaned up with Bovie cautery. The tibia was sequentially reamed up to a size 15, at which point the size 15 reamer had good fit. A cleanup cut was made with the tibial resection guide and the tibia was sized and found to be best with a size 4 tibia with a 4 mm offset catering truck driver. This was at the 12 o'clock position. The proximal tibia was reamed and a tibial trial was placed with a 4 mm offset catering truck driver and a 14 x 160 stem. Attention was turned to the femur. This was reamed up to a size 15, at which point the size 15 reamer was stable. A distal cleanup cut was made. Femur was sized and found to be passed with a size 5 femoral component with a 2 mm offset catering truck driver at the 10 o'clock position. It was pinned in place and anterior, posterior and chamfer cuts were made. Femoral trial was placed, box cut was made. This was then trialed with a size 9 and then a size 11 polyethylene and size 11 polyethylene demonstrated good balance medially and laterally in flexion and extension. It was somewhat loose laterally. It was felt we can make up for this with a constrained implant. The previous patellar button was then removed with oscillating saw and cleanup cut was made and then a size 35 patellar trial button was placed. Knee was taken through range of motion, found to be stable, found to have good patellar tracking. Trial components were removed. Bone [address] [address] OPERATIVE REPORT Name: MATILDA GUZMAN Room #: 434-P [facility] IN M.R.#: [id number] Admission: 02/17/21 Attend Phys: Lakhwinder Malone MD Discharge: Date of : 51 Report #: [id number] were thoroughly irrigated with normal saline. The final implants were built on the back table and cemented in place using standard cementation techniques. While the cement cured, a periarticular injection consisting of morphine, ropivacaine, epinephrine, Toradol was placed around the knee joint capsule. After the cement cured, the tourniquet was deflated. Hemostasis was obtained with Bovie cautery. A final size 11 constrained polyethylene was placed. A gram of vancomycin was placed deep in the joint. Fascia was closed with 0 Vicryl. Skin was closed with 2-0 Vicryl, skin staple and a BEAR dressing was applied. The patient tolerated this procedure well and went to recovery room under care of anesthesia postoperatively. <ELECTRONICALLY SIGNED> By: Lakhwinder Malone MD 02/21/21 [id number] Lakhwinder Malone MD /nt
--- NOTE | 2021-02-21 08:55 | NUR ---
Discussed with physical therapy and bedside nurse. New order for 5n eval. Cm visited with parveen at bedside, to discuss 2nd option for skilled rehab if he does not met qualify for 5n acute rehab. i will go any where but not [facility]. i just want to be walk again per parveen. He has support from his brother who lives in [place] and then his son, they can help him with taking him to appointment and errands if needed at dc after rehab per parveen.
[2021-02-21] MEDS ORDERED: ST. JOSEPH ASPI81 MG PO (12:51)
== END 2021-02-21 16:55 | DRG 466 ==
LOC: OR 06:24 → 4S 06:24 → TBA 06:25 → OR 10:31 → 4S 10:32 → OR 12:07 → TBA 14:38 → 4S 14:38 → OR 14:39 → 4S 02-21 16:55
PROVIDERS: Hospitalist; Nurse Practitioner; Orthopaedic Surgery Sports Medicine; ADMIT Orthopaedic Surgery; ATTEND Orthopaedic Surgery
PROC: 0SRC069 Replacement of Right Knee Joint with Oxidized Zirconium on Polyethylene Synthetic Substitute, Cemented, Open Approach (ICD-10-PCS; principal; 2021-02-17)
PROC: 0SPC0JZ Removal of Synthetic Substitute from Right Knee Joint, Open Approach (ICD-10-PCS; principal; 2021-02-17)
DX: T84.032A Mechanical loosening of internal right knee prosthetic joint, initial encounter (principal); N17.0 Acute kidney failure with tubular necrosis; I10 Essential (primary) hypertension; F41.9 Anxiety disorder, unspecified; E03.9 Hypothyroidism, unspecified; E11.42 Type 2 diabetes mellitus with diabetic polyneuropathy; Z96.651 Presence of right artificial knee joint; Z60.2 Problems related to living alone; Z20.822 Contact with and (suspected) exposure to COVID-19; Y83.8 Other surgical procedures as the cause of abnormal reaction of the patient, or of later complication, without mention of misadventure at the time of the procedure; E11.65 Type 2 diabetes mellitus with hyperglycemia; Y92.89 Other specified places as the place of occurrence of the external cause; I25.2 Old myocardial infarction; Z95.5 Presence of coronary angioplasty implant and graft; Z79.82 Long term (current) use of aspirin; Z79.899 Other long term (current) drug therapy; Z79.4 Long term (current) use of insulin; Z98.42 Cataract extraction status, left eye; Z98.41 Cataract extraction status, right eye; Z98.52 Vasectomy status; Z87.891 Personal history of nicotine dependence; Z88.6 Allergy status to analgesic agent; Z28.21 Immunization not carried out because of patient refusal
CPT/HCPCS: 10102; 50010; 50101; 50415; 50954; 51130; 51225; 51412; 53000; 53078; 56528; 57095; 57103; 57116; 57180; 57982; 57983; 58380; 58381; 58382; 58384; 58416; 59024; 59115; 62110; 62900; 64039; 70005

== ENCOUNTER 2021-02-21 13:59 | Inpatient (IN) | payer OTHER ==
[~2021-02-21] VITALS: Ht 152.4 cm; Wt 113.6 kg
--- NOTE | 2021-02-21 16:37 | NUR ---
Chart review. New to acute rehab this evening. José Miguel visited with Tarik white in up to 5N. He is 65 years old. Had Right total knee. He is a & o x 3, pleasant and able to make his needs know. Lives home alone, in duplex. 1 step to enter. Independent when feeling ok. Manage his own medication. His brother dallas # [phone] or his son can help him with errands or taking him places until he is cleared to drive. He will require fww at in, provider plus will deliver at in. Been too skilled at [facility] in the past and does not want to go back there. Unknown if he had hh in the past. Will cont. following as needed. José Miguel visited with his brother dallas, no concerns or needs voiced. José Miguel passed on number to 5N.
[2021-02-21 19:45] VITALS: BP 148/74
--- NOTE | 2021-02-21 19:46 | NUR ---
PATIENT ARRIVED TO UNIT VIA WC AT SUPPER TIME, HOWEVER, HE REFUSED HIS DINNER TRAY. RN JESSIKA NOTED THAT HE WAS ON SLIDING SCALE INSULIN WELL SCHEDULED 15 UNITS. PAGE SENT TO [facility] AND ORDERS RECEIVED TO HOLD THE 15 UNITS SCHEDULED DOSE DUE TO POOR PO INTAKE AND GIVE THE 3 UNITS OF SSI. THIS WAS DONE AND PT VERBALIZED UNDERSTANDING. PT HAS WOUND AT RIGHT BALL OF FOOT WITH LARGE CALLOUSED AREA AND DEEP CRACK IN THE SKIN AND RN TOOK PHOTO ON ADMISSION. RT HEEL IS RED BUE BLANCHES. LEFT HEEL PINK. CHELI HOSE REMOVED FOR NIGHT. WILL PLACE SCD'S. PT DENIES PAIN ON ADMISSION.
--- NOTE | 2021-02-21 20:09 | NUR ---
PATIENT DOES NOT HAVE ANYTHING ORDERED FOR PAIN CURRENTLY EXCEPT FOR TYLENOL. DR. NEWMAN WAS CONTACTED, AND ORDERS RECEIVED AND READ BACK.
--- NOTE | 2021-02-22 03:54 | NUR ---
ASSUMED CARE AT 1930 OF 02/21. PATIENT IS A&0X4, DENIES SHORTNESS OF BREATH. REPORTS PAIN IN RIGHT KNEE, PAIN MANAGED WITH SCHEDULED PAIN MEDICATION AND COLD THERAPY. TOLERATED MEDS WHOLE WITH THIN LIQUIDS. USES URINAL IN BED INDEPENDENTLY. SCDS APPLIED BILATERALLY AND HEELS ARE OFFLOADED WHILE IN BED. SLEEPING ON HOURLY ROUNDS. FALL PRECAUTIONS IN PLACE, CALL LIGHT WITHIN REACH. WILL CONTINUE TO MONITOR.
[2021-02-22 08:16] VITALS: BP 137/72
[2021-02-22 10:29] LABS: ABSOLUTE NEUTROPHILS 5.4 thou/uL (1.4-8.2); BASOPHILS 0.6 % (0.0-2.0); EOSINOPHILS 4.8 % (0.0-3.0); HEMATOCRIT 30.5 % (42.0-52.0); HEMOGLOBIN 10.4 gm/dL (14.0-18.0); LYMPHOCYTES 16.5 % (24.0-44.0); MCH 31.1 pg (26.0-34.0); MCV 91.5 fL (80.0-100.0); MONOCYTES 12.2 % (1.0-8.0); PLATELET COUNT 259 thou/uL (150-400); POLYS 65.9 % (36.0-66.0); RBC 3.34 mil/uL (4.50-6.00); RDW 13.5 % (10.5-14.5); WBC 8.2 thou/uL (4.0-11.0)
[2021-02-22 10:38] LABS: ALBUMIN 2.5 g/dL (3.4-5.0); CALCIUM 9.1 mg/dL (8.5-10.1); CREATININE 1.4 mg/dL (0.7-1.3); MAGNESIUM 1.6 mg/dL (1.8-2.4); POTASSIUM 5.3 mmol/L (3.5-5.1); TOTAL BILIRUBIN 1.3 mg/dL (0.2-1.0); TOTAL PROTEIN 7.4 g/dL (6.4-8.2)
--- NOTE | 2021-02-22 15:28 | NUR ---
ASSUMED C/O PT AT 0700. PT RESTING IN BED. PT REFUSED BREAKFAST.PT IS A&OX4 PT SEEMS CONFUSED AT TIMES. PT UP TO CHAIR WITH O.T. PT DID NOT HAVE URINAL WITHIN REACH SO PT WAS INCONTINENT WHILE UP IN CHAIR. PT IS UP X2 TO CHAIR. PT RLE CAN BUCKLE AT TIMES. PT USES GB AND WALKER. WILL CONTINUE TO MONITOR.
[2021-02-22 19:30] VITALS: BP 130/68
--- NOTE | 2021-02-23 00:30 | NUR ---
PT ALERT AND ORIENTED X 4. RIGHT KNEE DRESSING C/D/I. PT'S SHIRT SOAKED WITH URINE AT START OF SHIFT. REQUIRED COAXING TO CHANGE WET CLOTHING. PT DENIES PAIN OR DISCOMFORT. GETS SCHEDULED MS CONTIN AT HS. BED ALARM ON FOR SAFETY. PT APPEARS TO BE SLEEPING ON HOURLY ROUNDS.
[2021-02-23 08:00] VITALS: BP 152/66
--- NOTE | 2021-02-23 09:18 | NUR ---
PT WORKING WITH THERAPY THIS AM. PT WAS ABLE TO SWING SELF TO SIDE OF BED. BP OBTAINED FOR SITTING, 140/66, 85. UNABLE TO OBTAIN STANDING DUE TO TRANSFERING TO CHAIR AND HAVING PAIN OF 12 ON 1-10 SCALE TO RT KNEE. CHELI SUMNER TAKEN OFF DUE BEING LEFT ON DURING THE NIGHT. PT DIDN'T WANT YELLOW SOCKS ON WHEN TRANSFERING TO THE CHAIR, STATED HE NEEDS ON TO PREVENT FALLS. PT WAS ABLE TO TRANSFER TO CHAIR X2 STAFF WITH WALKER. PT POLAR CARE FILLED UP WITH ICE AND PLACED ON KNEE WHEN SITTING IN CHAIR. PT SAYING INAPPROPRIATE THINGS SUCH WANTING A NAKED NURSE. PT RT KNEE IS SWOLLEN, WARM TO TOUCH, NOT RED. DRESSING INTACT WITH BEAR. PT HAS RASH TO KIRKLAND AREA TO FACE. PT REFUSED MIRALAX THIS AM. PT WAS ABLE TO USE URINAL. PT BREAKFAST WARMED UP AND GIVEN TO HIM AND ENCOURAGED TO EAT.
--- NOTE | 2021-02-23 10:28 | NUR ---
PT WORKING WITH THERAPY AND UNABLE TO BEND RT LEG WITHOUT SEVERE PAIN. ADM OXYCODONE 5MG PO FOR PAIN TO RT KNEE. PT REFUSED TO HAVE CHELI HOSE ON LEGS AT THIS TIME. THERAPY TRYING TO GET PT TO BEND KNEE. PT SLOW TO MOVEMENT.
--- NOTE | 2021-02-23 16:31 | NUR ---
ADM OXYCODONE 5MG PO FOR PAIN OF 3 ON 1-10 SCALE. PT TOLERATING POLAR PACK TO RT KNEE.
[2021-02-23 19:00] VITALS: BP 130/61
--- NOTE | 2021-02-24 00:22 | NUR ---
ASSUMED CARE AT 1900 OF 02/23. A&OX4, VSS, DENIES SHORTNESS OF BREATH. REPORTS PAIN IN RLE, SHCEDULED PAIN MEDICATION ADMINISTERED TO MANAGE PAIN. PATIENT REFUSED OFFER TO APPLY COLD PACK TO RIGH KNEE. BEAR DRESSING TO RIGHT KNEE IS INTACT AND IN PLACE. SCD'S APPLIED BILLATERALLY WHILE IN BED. RT HAS APPLIED CPAP ON AT HS. BG AT HS WAS ELEVATED AT 292, PATIENT DENIES BLURRED VISSION OR INCREASED THIRST OR HUNGER. NO OTHER S/S OF HYPERGLICEMIA NOTED. ORAL FLUID INTAKE IS ENCOURGED AND PATIENT IS DRINKING MORE WATER. SQUILGEER PROVIDER NOTIFIED OF BG LEVEL, NO NEW ORDERS. CONTINUE TO MONITOR PATIENT FOR CHANGE IN STATUS, ONCOMING SHIFT WILL BE UPDATED TO NOTIFY HOSPITALIST ON INSULIN MANAGEMENT DUE TO RECENT INCREASES IN BG LEVELS. PATIENT IS SLEEPING ON HOURLY ROUNDS, CALL LIGHT WITHIN REACH, URINAL AT BEDSIDE. FALL PRECAUTIONS IN PLACE, WILL CONTINUE TO MONITOR.
[2021-02-24 06:17] LABS: ABSOLUTE NEUTROPHILS 4.7 thou/uL (1.4-8.2); BASOPHILS 0.6 % (0.0-2.0); EOSINOPHILS 5.5 % (0.0-3.0); HEMOGLOBIN 9.8 gm/dL (14.0-18.0); LYMPHOCYTES 19.2 % (24.0-44.0); MCH 30.9 pg (26.0-34.0); MCHC 33.8 g/dL (28.0-37.0); MCV 91.5 fL (80.0-100.0); MONOCYTES 15.4 % (1.0-8.0); PLATELET COUNT 284 thou/uL (150-400); POLYS 59.3 % (36.0-66.0); RBC 3.17 mil/uL (4.50-6.00); RDW 13.7 % (10.5-14.5); WBC 7.9 thou/uL (4.0-11.0)
[2021-02-24 06:26] LABS: CALCIUM 9.2 mg/dL (8.5-10.1); CREATININE 1.2 mg/dL (0.7-1.3); MAGNESIUM 1.5 mg/dL (1.8-2.4); POTASSIUM 5.8 mmol/L (3.5-5.1)
[2021-02-24 08:00] VITALS: BP 124/67
--- NOTE | 2021-02-24 13:23 | NUR ---
Team meeting, recommendation: Moderate cognition and memory. [facility] soft chopped diet with thin liquids. Swelling lower ext right leg. Will need assist with medication and finances. Re team with anticipated dc 03/11. Will need fww.
[2021-02-24 19:53] VITALS: BP 110/60
--- NOTE | 2021-02-24 23:49 | NUR ---
ASSUMED CARE OF PT AT 1945. PT IS A&O TO SELF. PT CONTINUED TO JOKE & WOULD NOT ANSWER QUESTIONS. IS PLEASANT. DENIES PAIN. IS STABLE. IS ON ROOM AIR. IS UP WITH MAX ASSIST OF 2, GB, WALKER. FALL PRECAUTIONS & HOURLY ROUNDING CONTINUED THIS SHIFT. BEAR DRSG & POLAR PACK TO RIGHT KNEE. KNEE RUBY. HAS SCABES ON GREAT LEFT TOE & BALL OF RIGHT FOOT. IS ABLE TO REPOSITION SELF IN BED. IS CURRENTLY ASLEEP & ASKED TO NOT BE AWAKENED UNTIL MORNING. CALL LIGHT WITHIN REACH. WILL CONTINUE TO MONITOR.
[2021-02-25 07:30] VITALS: BP 123/66
[2021-02-25 08:00] VITALS: BP 123/66
[2021-02-25 19:36] VITALS: BP 125/54
--- NOTE | 2021-02-26 03:30 | NUR ---
assumed care approx 1900 evening 02/25. pt lying in bed resting at change of shift. pt denied complaints. pt took hs meds with water tolerating well. pt appears to be sleeping soundly. bed alarm on and call light in reach. will continue to monitor.
[2021-02-26 06:09] LABS: ABSOLUTE NEUTROPHILS 4.4 thou/uL (1.4-8.2); BASOPHILS 1.2 % (0.0-2.0); EOSINOPHILS 6.3 % (0.0-3.0); HEMATOCRIT 32.3 % (42.0-52.0); LYMPHOCYTES 28.8 % (24.0-44.0); MCH 31.5 pg (26.0-34.0); MCHC 34.1 g/dL (28.0-37.0); MCV 92.2 fL (80.0-100.0); MONOCYTES 13.9 % (1.0-8.0); PLATELET COUNT 350 thou/uL (150-400); POLYS 49.8 % (36.0-66.0); RDW 13.8 % (10.5-14.5); WBC 8.9 thou/uL (4.0-11.0)
[2021-02-26 06:15] LABS: CALCIUM 9.1 mg/dL (8.5-10.1); CREATININE 1.6 mg/dL (0.7-1.3); MAGNESIUM 2.1 mg/dL (1.8-2.4); POTASSIUM 4.8 mmol/L (3.5-5.1)
[2021-02-26 08:00] VITALS: BP 141/62
--- NOTE | 2021-02-26 08:40 | NUR ---
PT COMPLAINING OF BURING WHEN VOIDING. PT URINE IS YELLOW IN COLOR. PT LUNGS CLEAR. PT RT KNEE DRESSING IS INTACT, NO SIGNS OF REDDNESS OR SWELLING. PT USING ICE POLAR CARE. PT UP WITH WALKER WITH STAND-BY ASSIST. PT TOOK MEDS WITH WATER. PAIN TO RT KNEE IS 6 ON 1-10 SCALE. PT JOKES AROUND WITH THE STAFF.
--- NOTE | 2021-02-26 12:40 | NUR ---
ADM OXYCODONE 5MG PO FOR PAIN TO RT KNEE. PT THANKING STAFF FOR HIS CARE. PT UPSET THAT HE DIDN'T GET WHAT HE ORDERED FOR LUNCH.
[2021-02-26 19:38] VITALS: BP 146/66
--- NOTE | 2021-02-27 00:22 | NUR ---
PT ASSESSMENT COMPLETED AND VSS. MEDS GIVEN ORDERED AND WELL TOLERATED. PT REFUSED ALL LAXITIVES. PT INC OF LARGE AMOUNT OF URINE. NEEDED TO CHANGE ALL BED LINENS. UA NEEDED BUT PT HAS NOT NEEDED TO VOID YET. FALL PRECAUTIONS IN PLACE. UP TO THE BATHROOM WITH ASST/GAIT/WALKER. STEADY. C/O PAIN. PAIN MEDICATION GIVEN AND HELPFUL. POLAR PACK ICE REPLACED AND HELPFUL. RT IN TO SEE PT. PT REFUSED CPAP AND NC 02. SAT REMAINS WNL SO FAR DURING THE NIGHT. SLEEPING WELL. WILL CONTINUE TO MONITOR FREQUENTLY.
[2021-02-27 03:52] LABS: URINE BILIRUBIN NEGATIVE (Negative); URINE BLOOD NEGATIVE (Negative); URINE CLARITY CLEAR; URINE COLOR YELLOW; URINE GLUCOSE-RANDOM* TRACE (Negative); URINE KETONES NEGATIVE (Negative); URINE LEUKOCYTES-REFLEX NEGATIVE (Negative); URINE NITRITE-REFLEX NEGATIVE (Negative); URINE PROTEIN (DIPSTICK) NEGATIVE (Negative); URINE UROBILINOGEN 0.2 E.U./dl (0.2-1.0)
--- NOTE | 2021-02-27 09:22 | NUR ---
PT RESTING THIS AM. PT USES URINAL AT BEDSIDE. PT HAS POLAR CARE TO RT KNEE. PT STATED PAIN IS 2-3 ON 1-10 SCALE. PT UP WITH WALKER INTO W/C. PT ATE BREAKFAST OUT IN DINING ROOM THIS AM. PT TOOK MEDS WITH WATER WITHOUT ANY ISSUES. PT JOKES WITH STAFF. PT DRESSING TO RT KNEE IS INTACT, NO SIGNS OF INFECTION. PT REFUSED LAXATIVES THIS AM STATING HE HAD GAS PAIN WITH MIRALAX.
[2021-02-27 09:27] VITALS: BP 137/64
--- NOTE | 2021-02-27 12:09 | NUR ---
PT IS NOT HAPPY WITH HIS MEALS, FOOD BEING CUT UP IN PIECES. PT DOES DRINK GLUCERNA SHAKES. PT GIVES SELF HIS INSULIN, SOMETIMES PT GIVES INSULIN THROUGH HIS GOWN, EVEN WITH NURSE SAYING NOT TOO.
--- NOTE | 2021-02-27 12:26 | NUR ---
ADM OXYCODONE 5MG PO FOR PAIN TO RT KNEE OF 5 ON 1-10 SCALE.
--- NOTE | 2021-02-27 16:14 | NUR ---
PT HAS ATE IN DINING ROOM X2 MEALS TODAY. PT RESTING NOW IN BED WITH POLAR CARE ON RT KNEE, AND KNEE ELEVATED.
[2021-02-27 19:44] VITALS: BP 122/66
--- NOTE | 2021-02-28 00:50 | NUR ---
PT ALERT AND ORIENTED X 4. DRESSING TO RIGHT KNEE C/D/I. POLAR PACK TO RIGHT KNEE. PT REFUSED MIRALAX AT HS. PT DENIES PAIN OR DISCOMFORT. SCHEDULED MS CONTIN GIVEN AT HS. BED ALARM ON FOR SAFETY. PT APPEARS TO BE SLEEPING ON HOURLY ROUNDS.
[2021-02-28 07:15] VITALS: BP 144/73
[2021-02-28 20:58] VITALS: BP 141/60
--- NOTE | 2021-02-28 22:11 | NUR ---
[place] [id number]. PT IS A&OX4. IS ON ROOM AIR. DENIES PAIN IN RIGHT KNEE. BEAR DRSG & POLAR PACK IN PLACE. IS STABLE. IS UP WITH 1 ASSIST, GB, WALKER. FALL PRECAUTIOSN & HOURLY ROUNDING CONTINUED THIS SHIFT. LABS & VITALS REVIEWED. PT REFUSED TO TAKE MIRALAX. STATED, "I HAD A BM TODAY WHILE WITH PHYSICAL THERAPY. ASK THEM IF YOU DON'T BELIEVE ME". REPORTS N/T IN HANDS & FEET. DENIES N/V. IS SLEEPING. CALL LIGHT WITHIN REACH. ACROSS FROM NURSE STATION. CALL LIGHT WITHIN REACH. WILL CONTINUE TO MONITOR. PT STATED, "I AM GOING HOME TOMORROW". WHEN ASKED IF BEING DISCHARGED, PT STATED, "I AM DISCHARGING MYSELF". THIS NURSE USED THERAPUETIC COMMUNICATION. PT APPEARED TO BE JOKING. WILL CONTINUE TO MONITOR.
[2021-03-01 05:53] LABS: ABSOLUTE NEUTROPHILS 4.5 thou/uL (1.4-8.2); EOSINOPHILS 6.7 % (0.0-3.0); HEMATOCRIT 29.1 % (42.0-52.0); LYMPHOCYTES 32.1 % (24.0-44.0); MCH 31.3 pg (26.0-34.0); MCHC 34.2 g/dL (28.0-37.0); MCV 91.3 fL (80.0-100.0); POLYS 49.2 % (36.0-66.0); RBC 3.18 mil/uL (4.50-6.00); RDW 13.7 % (10.5-14.5)
[2021-03-01 05:55] LABS: PLATELET COUNT 444 thou/uL (150-400)
[2021-03-01 06:11] LABS: CALCIUM 9.3 mg/dL (8.5-10.1); CREATININE 1.3 mg/dL (0.7-1.3); MAGNESIUM 1.9 mg/dL (1.8-2.4); POTASSIUM 5.3 mmol/L (3.5-5.1)
[2021-03-01 07:23] VITALS: BP 149/79
[2021-03-01 19:33] VITALS: BP 107/60
--- NOTE | 2021-03-02 03:46 | NUR ---
assumed care approx 0 evening 03/01. pt awake at change of shift, alert and oriented x4. pt with knee dressing in place c/d/i with pt stated it was itching. pt voiding per urinal. pt took hs meds with water and also given pain pill. pt sleeping soundly. bed alarm on and call light in reach. will continue to monitor.
[2021-03-02 07:25] VITALS: BP 139/72
[2021-03-02 08:00] VITALS: BP 139/72
[2021-03-02 19:58] VITALS: BP 155/73
--- NOTE | 2021-03-02 20:58 | NUR ---
ASSUMED CARE OF PT AT 1915. PT IS A&OX4. IS ON ROOM AIR. IS STABLE. DENIES PAIN IN RIGHT KNEE AT THIS TIME. POLAR PACK WAS IN PLACE. PT ASKED FOR IT TO BE REMOVED. BRIDGETTE C/D/I. HAS WOUNDS ON LEFT GREAT TOE & RIGHT PLANTAR FOOT THAT ARE BLACK IN COLOR & INTACT. CARES COMPLETED ON DAY SHIFT. HAS N/T IN HANDS & FEET. IS UP WITH 1 ASSIST, GB, WALKER TO BATHROOM. FALL PRECAUTIONS & HOURLY ROUNDING CONTINUED. LABS & VITALS REVIEWED. PT VOICED THAT HE WANTS TO GO HOME. THERAPUETIC COMMUNICATION CONDUCTED WITH PT BY THIS NURSE WELL DR. HILL. PT IS CURRENTLY IN ROOM, IN BED, WATCHING VIDEOS ON HIS CELL PHONE. BED ALRAM ON. IS ABLE TO TURN SELF IN BED. VOICED THAT HE DOES NOT WANT TO BE AWAKENED. CALL LIGHT WITHIN REACH. REFUSED SCDS. WILL CONTINUE TO MONITOR.
[2021-03-03 08:00] VITALS: BP 140/85
--- NOTE | 2021-03-03 08:00 | NUR ---
PT REFUSED BREAKFAST THIS AM, PT GETTING DRESSED AND STATED HE IS LEAVING TODAY. PT HAS SHORTS ON AND BELT. PT GATHERING PERSONAL ITEMS IN HIS ROOM ASKING FOR A BAG. HE NOTIFIED HIS BROTHER TO COME PICK HIM UP.
--- NOTE | 2021-03-03 09:47 | NUR ---
PT FINISHED WITH REHAB, ADM AM MEDS PO AND INSULIN, PT STILL REFUSED TO EAT BREAKFAST. PT BROTHER CALLED AND SAID HE WAS IN THE PARKING LOT. PT STATED HE WAS SUPPOSED TO GET A WALKER FROM . CALLED AND STATED IF HE IS GOING AMA HE WILL NOT GET A WALKER. PT STATED HE HAS A WALKER IN THE ROOM AND IT WAS TOO SHORT, HE STATED HE BORROWED IT FROM A FRIEND.
--- NOTE | 2021-03-03 10:00 | NUR ---
PT SIGNED AMA FORM AND IS AWARE OF CONSEQUENCES OF LEAVING PRIOR TO DOCTOR RECOMMENDATION.
--- NOTE | 2021-03-03 10:10 | NUR ---
cm notified by bedside nurse that parveen is leaving AMA and has ride outside, wanted to know what can be set up. Leaving AMA, nothing can be arranged.
--- NOTE | 2021-03-03 10:34 | NUR ---
PT LEFT VIA W/C WITH BELONGINGS AND WALKER. PT ALSO HAS SCRIPTS FROM PREVIOUS UNIT. PT WAS PICKED UP BY BROTHER AND WAS ABLE TO GET INTO FRONT SEAT OF CAR, PT PLACED WALKER IN BACK SEAT AND WAS TRIPPING TO FRONT SEAT, AND STATED YOU KNOW I'M JUST JOKING AROUND, PT WAS ABLE TO GET INTO HIS BROTHERS CAR AND LIFT RT LEG INTO THE CAR.
[2021-03-03] MEDS ORDERED: ST. JOSEPH ASPI81 MG PO (12:38)
[2021-03-03] MEDS ORDERED: NEURONTIN300 MG PO (12:38)
== END 2021-03-03 10:35 | disposition left against medical advice (07) | DRG 92 ==
PROVIDERS: Hospitalist; Nurse Practitioner; ADMIT Physical Medicine & Rehabilitation; ATTEND Physical Medicine & Rehabilitation
DX: R26.89 Other abnormalities of gait and mobility (principal); E44.0 Moderate protein-calorie malnutrition; T84.032A Mechanical loosening of internal right knee prosthetic joint, initial encounter; Z68.42 Body mass index [BMI] 45.0-49.9, adult; E11.42 Type 2 diabetes mellitus with diabetic polyneuropathy; Z96.651 Presence of right artificial knee joint; M19.90 Unspecified osteoarthritis, unspecified site; R13.10 Dysphagia, unspecified; E53.8 Deficiency of other specified B group vitamins; R41.89 Other symptoms and signs involving cognitive functions and awareness; N18.9 Chronic kidney disease, unspecified; Z60.2 Problems related to living alone; E03.9 Hypothyroidism, unspecified; F41.9 Anxiety disorder, unspecified; K59.00 Constipation, unspecified; I25.10 Atherosclerotic heart disease of native coronary artery without angina pectoris; E87.5 Hyperkalemia; E11.622 Type 2 diabetes mellitus with other skin ulcer; L97.529 Non-pressure chronic ulcer of other part of left foot with unspecified severity; Z53.29 Procedure and treatment not carried out because of patient's decision for other reasons; R53.81 Other malaise; I12.9 Hypertensive chronic kidney disease with stage 1 through stage 4 chronic kidney disease, or unspecified chronic kidney disease; Z88.6 Allergy status to analgesic agent; Z79.82 Long term (current) use of aspirin; Z87.891 Personal history of nicotine dependence; Z79.899 Other long term (current) drug therapy; Z79.4 Long term (current) use of insulin; I25.2 Old myocardial infarction; Z95.5 Presence of coronary angioplasty implant and graft; Z98.42 Cataract extraction status, left eye; Z98.41 Cataract extraction status, right eye; Z98.52 Vasectomy status; Y83.8 Other surgical procedures as the cause of abnormal reaction of the patient, or of later complication, without mention of misadventure at the time of the procedure; Y92.89 Other specified places as the place of occurrence of the external cause
CPT/HCPCS: 10112

== ENCOUNTER → 2021-03-15 | Outpatient (CLI) | payer OTHER ==
[~2021-03-15] MED LIST changes: +NEURONTIN300 MG PO
== END ==
LOC: HYPER 10:39
PROVIDERS: ATTEND Emergency Medicine
DX: E11.621 Type 2 diabetes mellitus with foot ulcer (principal); L97.511 Non-pressure chronic ulcer of other part of right foot limited to breakdown of skin; S90.411A Abrasion, right great toe, initial encounter; E11.40 Type 2 diabetes mellitus with diabetic neuropathy, unspecified; L84 Corns and callosities; E78.5 Hyperlipidemia, unspecified; I10 Essential (primary) hypertension; G89.29 Other chronic pain; M54.50 Low back pain, unspecified; M19.90 Unspecified osteoarthritis, unspecified site; K21.9 Gastro-esophageal reflux disease without esophagitis; E03.9 Hypothyroidism, unspecified; I25.2 Old myocardial infarction; Z79.4 Long term (current) use of insulin; Z79.82 Long term (current) use of aspirin; Z86.14 Personal history of Methicillin resistant Staphylococcus aureus infection; Z87.891 Personal history of nicotine dependence; Z98.52 Vasectomy status; Z98.49 Cataract extraction status, unspecified eye; Z98.890 Other specified postprocedural states; Z79.899 Other long term (current) drug therapy; X58.XXXA Exposure to other specified factors, initial encounter; Y93.89 Activity, other specified; Y92.89 Other specified places as the place of occurrence of the external cause; Y99.8 Other external cause status

== ENCOUNTER → 2021-03-29 | Outpatient (CLI) | payer OTHER | LOC: HYPER 10:41 | PROVIDERS: ATTEND Emergency Medicine | DX: E11.621 Type 2 diabetes mellitus with foot ulcer (principal); L97.511 Non-pressure chronic ulcer of other part of right foot limited to breakdown of skin; S90.411D Abrasion, right great toe, subsequent encounter; S91.115A Laceration without foreign body of left lesser toe(s) without damage to nail, initial encounter; E11.40 Type 2 diabetes mellitus with diabetic neuropathy, unspecified; L84 Corns and callosities; E78.5 Hyperlipidemia, unspecified; I10 Essential (primary) hypertension; G89.29 Other chronic pain; M54.50 Low back pain, unspecified; M19.90 Unspecified osteoarthritis, unspecified site; K21.9 Gastro-esophageal reflux disease without esophagitis; E03.9 Hypothyroidism, unspecified; I25.2 Old myocardial infarction; Z86.14 Personal history of Methicillin resistant Staphylococcus aureus infection; Z87.891 Personal history of nicotine dependence; Z79.4 Long term (current) use of insulin; Z79.82 Long term (current) use of aspirin; X58.XXXA Exposure to other specified factors, initial encounter; Y93.89 Activity, other specified; Y92.89 Other specified places as the place of occurrence of the external cause; Y99.8 Other external cause status ==